=== PATIENT | female | born 1945 | race Two or more races ===

== ENCOUNTER 2017-09-12 05:54 | Emergency (ER) | payer MEDICARE ==
[~2017-09-12] VITALS: Ht 160 cm; Wt 77.1 kg
[2017-09-12] MEDS ORDERED: SODIUM CHLORIDE 0.9% 1000ML 1,000 ML ONE (06:30)
[2017-09-12] MEDS ORDERED: ACETAMINOPHEN 325 MG TAB PO ONE (06:30)
[2017-09-12 08:58] VITALS: BP 146/88
== END 2017-09-12 09:00 | disposition home or self-care (01) ==
LOC: FSED 05:54
DX: R30.0 Dysuria (principal); N39.0 Urinary tract infection, site not specified; K80.20 Calculus of gallbladder without cholecystitis without obstruction; I10 Essential (primary) hypertension; E11.9 Type 2 diabetes mellitus without complications
CPT/HCPCS: 74177; 80053; 81003; 85025; 87086; 99284; J7030

== ENCOUNTER 2017-09-21 07:21 | Emergency (ER) | payer MEDICARE ==
[~2017-09-21] VITALS: Ht 160 cm; Wt 77.1 kg
[2017-09-21] MEDS ORDERED: DICYCLOMINE HCL10 MG PO (07:43)
[2017-09-21] MEDS ORDERED: LINZESS PO (07:43)
[2017-09-21] MEDS ORDERED: LEVOCETIRIZINE D5 MG PEG (07:49)
[2017-09-21] MEDS ORDERED: NORVASC10 MG PO (07:49)
[2017-09-21] MEDS ORDERED: ASPIR 8181 MG PO (07:49)
[2017-09-21] MEDS ORDERED: ATORVASTATIN CA10 MG PO (07:49)
[2017-09-21] MEDS ORDERED: METOPROLOL TART25 MG PO (07:49)
[2017-09-21] MEDS ORDERED: METFORMIN HCL500 MG PO (07:49)
[2017-09-21] MEDS ORDERED: MELOXICAM7.5 MG PO (07:49)
== END 2017-09-21 12:36 | disposition home or self-care (01) ==
LOC: FSED 07:21
DX: E11.40 Type 2 diabetes mellitus with diabetic neuropathy, unspecified (principal); I10 Essential (primary) hypertension; K58.9 Irritable bowel syndrome, unspecified; Z86.12 Personal history of poliomyelitis
CPT/HCPCS: 70450; 80053; 85025; 85379; 93970; 99284

== ENCOUNTER 2017-10-06 04:07 | Emergency (ER) | payer MEDICARE ==
[~2017-10-06] VITALS: Ht 160 cm; Wt 77.1 kg
[~2017-10-06 04:07] MED LIST: ASPIR 8181 MG PO; ATORVASTATIN CA10 MG PO; DICYCLOMINE HCL10 MG PO; LEVOCETIRIZINE D5 MG PEG; LINZESS PO; MELOXICAM7.5 MG PO; METFORMIN HCL500 MG PO; METOPROLOL TART25 MG PO; NORVASC10 MG PO
[2017-10-06] MEDS ORDERED: MONTELUKAST SOD10 MG PO (04:23)
[2017-10-06] MEDS ORDERED: GLIMEPIRIDE2 MG PO (04:23)
[2017-10-06] MEDS ORDERED: BACLOFEN10 MG PO (04:25)
[2017-10-06] MEDS ORDERED: LYRICA75 MG (04:26)
[2017-10-06 05:02] LABS: BASOPHILS # (AUTO) 0.1 (0.0-0.1); BASOPHILS % 0.9 % (0.0-1.0); EOSINOPHILS # (AUTO) 0.2 (0.0-0.4); EOSINOPHILS % 2.2 % (0.0-6.0); HEMATOCRIT 40.5 % (34.2-44.1); HEMOGLOBIN 12.7 g/dL (12.0-16.0); LYMPHOCYTES # (AUTO) 1.9 (1.0-3.2); LYMPHOCYTES % 27.8 % (18.0-39.1); MEAN CORPUSCULAR HEMOGLOBIN 29.3 pg (28-32); MEAN CORPUSCULAR HGB CONC 31.4 g/dL (31-35); MEAN CORPUSCULAR VOLUME 93.5 fL (81-99); MONOCYTES # (AUTO) 0.5 (0.2-0.8); MONOCYTES % 7.5 % (4.4-11.3); NEUTROPHILS # (AUTO) 4.3 (2.1-6.9); NEUTROPHILS % 61.3 % (38.7-80.0); PLATELET COUNT 239 x10e3/uL (140-360); RED BLOOD COUNT 4.33 x10e6/uL (3.6-5.1); RED CELL DISTRIBUTION WIDTH 14.2 % (11.7-14.4)
[2017-10-06 05:16] LABS: BILIRUBIN,URINE NEGATIVE (NEGATIVE); CLARITY,URINE CLEAR (CLEAR); COLOR,URINE YELLOW (YELLOW); KETONES,URINE NEGATIVE (NEGATIVE); LEUKOCYTE ESTERASE ,URINE TRACE (NEGATIVE); NITRITE,URINE NEGATIVE (NEGATIVE); PROTEIN,URINE DIPSTICK NEGATIVE (NEGATIVE); URINE UROBILINOGEN 0.2 mg/dL (0.2 - 1)
[2017-10-06 05:17] LABS: EPITHELIAL CELLS,URINE MODERATE /LPF; RBC,URINE 0-5 /HPF (0-5)
[2017-10-06 05:18] LABS: ALBUMIN 4.1 g/dL (3.5-5.0); ALBUMIN/GLOBULIN RATIO 1.1 (0.8-2.0); ANION GAP 16.1 mmol/L (8-16); CREATININE, SERUM 1.07 mg/dL (0.57-1.11); POTASSIUM 4.1 mmol/L (3.5-5.1)
[2017-10-06 05:26] LABS: CREATINE KINASE MB 4.1 ng/mL (0-5.0)
--- NOTE | 2017-10-06 05:36 | Diagnostic Imaging Report ---
EXAMINATION: Head CT without contrast. HISTORY:Dizziness. COMPARISON:None. TECHNIQUE: Multidetector axial images were obtained from the foramen magnum to the vertex without contrast. The images were reconstructed using brain and bone algorithms. Thin section brain images were reformatted into coronal and sagittal planes. Intravenous contrast: None IMAGE QUALITY: Acceptable. FINDINGS: Skull/scalp: No lytic or blastic. lesions. No surgical changes. Parenchyma: Nonspecific few, scattered supratentorial white matter patchy hypodensity are likely microvascular ischemic changes. 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 No acute hemorrhage, mass or acute major vascular territorial infarct. Arteries: Atherosclerotic calcification in bilateral carotid siphon and V4 segment of the vertebral arteries. Dural sinuses: No abnormal density suggestive of thrombosis. Ventricles: No hydrocephalus or displacement. Extra-axial spaces: No abnormal density. Brain volume: Normal for age. Craniocervical junction: No mass, Chiari malformation, or basilar invagination. Sella: No mass. Paranasal/mastoid sinuses: Mild mucosal thickening in left sphenoid sinus. IMPRESSION: 1. No acute intracranial abnormality. 2. Mild supratentorial white matter microvascular ischemic changes. Signed by: Dr. Lauren Emery M.D. on 10/06/2017 5:33 AM
--- NOTE | 2017-10-06 05:53 | Diagnostic Imaging Report ---
EXAM: CHEST SINGLE (PORTABLE), AP 1 view INDICATION: Dizzy COMPARISON: None FINDINGS: LINES/TUBES: None LUNGS: No consolidations or edema. PLEURA: No effusions or pneumothorax. HEART AND MEDIASTINUM: The heart is within normal size limits. Enlargement of the upper mediastinum. BONES AND SOFT TISSUES: No acute findings. IMPRESSION: Nonspecific enlargement of the upper mediastinum. This could be secondary to mass, lymphadenopathy or vascular pathology. A CT of the chest with IV contrast is recommended for further evaluation. Signed by: Dr. Judith Main M.D. on 10/06/2017 5:50 AM
[2017-10-06] MEDS ORDERED: SODIUM CHLORIDE 0.9% 1000ML 1,000 ML IV ONE (06:00)
[2017-10-06] MEDS ORDERED: SODIUM CHLORIDE 0.9% 50ML 50 ML ONE (06:29)
[2017-10-06] MEDS ORDERED: IOPAMIDOL 370 MG/ML 200 ML INFUS..BTL INJ ONE (06:29)
[2017-10-06 09:15] VITALS: BP 110/78
--- NOTE | 2017-10-06 09:18 | Diagnostic Imaging Report ---
PROCEDURE: CT scan of the chest WITH intravenous contrast, using standard protocol. TECHNIQUE: The chest was scanned utilizing a multidetector helical scanner from the lung apex through the level of the adrenal glands after the IV administration of 100 cc of Isovue 370. Coronal and sagittal multiplanar reformations were obtained. COMPARISON: Chest radiograph 10/06/17. INDICATIONS: ABNORMAL CXR; ENLARGEMENT OF MEDIASTINUM FINDINGS: Lines/tubes: None. Lungs and Airways: The central airways are patent. Patchy dependent atelectasis. There are scattered tree in bud nodules in the right upper lobe, for example on series 3, image 27 and image 40. Some of clustered nodules are larger, for example measuring up to 4 mm in the right upper lobe on image 41. There is 4 mm high density nodule within the right upper lobe on image 40, likely calcified granuloma. Pleura: The pleural spaces are clear. Heart and mediastinum: No evidence of mediastinal mass. The ascending thoracic aorta is ectatic measuring up to 3.9 cm, likely accounting for the upper mediastinal fullness noted on chest radiograph. There are atherosclerotic calcifications of the thoracic aorta and coronary vessels. The thyroid gland is normal. No significant mediastinal, hilar or axillary lymphadenopathy is seen. Non-specific 9 mm left peribronchial lymph node. No pericardial effusion. Soft tissues: Normal. Abdomen: Limited contrast-enhanced views of the upper abdomen show no abnormality within the visualized liver, spleen, or pancreas. 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 Partially seen 2.7 cm left renal cyst. Cholelithiasis. Bones: No acute bony findings. No suspicious lytic or blastic lesions. IMPRESSION: No evidence of mediastinal mass. The ascending thoracic aorta is ectatic measuring up to 3.9 cm, likely accounting for the upper mediastinal fullness noted on prior chest radiograph. Scattered tree in bud and clustered nodules in the right upper lobe, likely infectious or inflammatory. The largest solid nodule measures up to 4 mm. No follow-up chest CT is advised for a low-risk patient. An optional chest CT may be considered in 12 months for higher risk patients (such as those with smoking history or other risk factor for malignancy). Dictated by: LISA DUMAS M.D. on 10/06/2017 at 7:36 Electronically approved by: LISA DUMAS M.D. on 10/06/2017 at 7:36
== END 2017-10-06 09:30 | disposition home or self-care (01) ==
LOC: ER 04:10
DX: R42 Dizziness and giddiness (principal); N30.90 Cystitis, unspecified without hematuria
CPT/HCPCS: 36415; 70450; 71045; 71260; 80053; 81001; 82550; 82553; 84484; 85025; 93005; 99284; J7030; Q9967

== ENCOUNTER 2017-12-15 03:27 | Emergency (ER) | payer MEDICARE ==
[~2017-12-15] VITALS: Ht 160 cm; Wt 72.6 kg
[~2017-12-15 03:27] MED LIST changes: +BACLOFEN10 MG PO; +GLIMEPIRIDE2 MG PO; +LYRICA75 MG; +MONTELUKAST SOD10 MG PO
--- NOTE | 2017-12-15 04:24 | Diagnostic Imaging Report ---
EXAMINATION: Head CT without contrast. HISTORY:Headache. COMPARISON:CT head from 10/06/2017. TECHNIQUE: Multidetector axial images were obtained from the foramen magnum to the vertex without contrast. The images were reconstructed using brain and bone algorithms. Thin section brain images were reformatted into coronal and sagittal planes. Dose modulation, iterative reconstruction, and/or weight based adjustment of the mA/kV was utilized to reduce the radiation dose to as low as reasonably achievable. Intravenous contrast: None IMAGE QUALITY: Acceptable. FINDINGS: Skull/scalp: No lytic or blastic. lesions. No surgical changes. Parenchyma: Nonspecific few, scattered supratentorial white matter patchy hypodensity are likely related to small vessel ischemic changes. 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 No acute hemorrhage, mass or acute major vascular territorial infarct. Arteries: No density suggestive of thrombosis. Atherosclerotic calcification in bilateral carotid siphon and V4 segment of the vertebral arteries. Dural sinuses: No abnormal density suggestive of thrombosis. Ventricles: No hydrocephalus or displacement. Extra-axial spaces: No abnormal density. Brain volume: Normal for age. Craniocervical junction: No mass, Chiari malformation, or basilar invagination. Sella: No mass. Paranasal/mastoid sinuses: Imaged portions unremarkable. IMPRESSION: No acute intracranial abnormality. No change since CT brain from 10/06/2017. Chronic findings: Mild supratentorial white matter microvascular ischemic changes. Signed by: Dr. Lauren Emery M.D. on 12/15/2017 4:21 AM
== END 2017-12-15 05:18 | disposition home or self-care (01) ==
LOC: FSED 03:27
DX: G44.209 Tension-type headache, unspecified, not intractable (principal); H10.89 Other conjunctivitis; I10 Essential (primary) hypertension; E11.9 Type 2 diabetes mellitus without complications; E03.9 Hypothyroidism, unspecified; Z86.12 Personal history of poliomyelitis
CPT/HCPCS: 70450; 80053; 81003; 82553; 84484; 85025; 93005; 99284

== ENCOUNTER 2018-11-12 03:44 | Emergency (ER) | payer MEDICARE ==
[~2018-11-12] VITALS: Ht 160 cm; Wt 72.6 kg
--- OUTSIDE RECORDS SUMMARY | 2018-11-12 03:47 | XMS REPORT ---
Author Author [facility] Address Unknown Phone Unavailable Care Team Providers Care Senior [employer] Sql Developer Name Role Phone Shreyas CRANE Unavailable Unavailable Orestes KINGSTON Unavailable Unavailable Payers Payer Name Policy Type Policy Number Effective Date Expiration Date Problems This patient has no known problems. Allergies, Adverse Reactions, Alerts Allergy Name Allergy Type Status Severity Reaction(s) Onset Date Inactive Date Treating Clinician Comments No Known Allergies DA Active U 2017-05-02 00:00:00 Medications This patient has no known medications. Results Test Description Test Time Test Comments Text Results Atomic Results Result Comments DUODENUM,BIOPSY 2018-05-09 16:02:00 RUN DATE: 05/09/18 [place] - Lab PAGE 1 RUN TIME: 1602 Specimen Inquiry RUN USER: INTERFACE [id number] LOC: МАРИНА U #: [id number] AGE/SX: 73/F ROOM: RE05/02/18REG DR: Betito Mireles : 49 BED: DIS: STATUS: [facility] TLOC: SPEC #: [id number] RECD: 05/02/18 STATUS: [facility] #: [id number] PIETRO: 05/02/18- [facility] DR: Betito Mireles MD ENTERED: 05/02/18 SP TYPE: BX DUODEN OTHR DR: Ed Yoder MD ORDERED: GROSS COPIES TO: Betito Mireles MD [address], [address] [place], [place] [id number] Ed Yoder MD [address] [place], [place] [address] PROCE DURES: GROSS (05/04/18-1247) TISSUES: 1. DUODENUM, NOS - COLD BX 2. ANTRUM - COLD BX 3. ESOPHAGUS, NOS - COLD BX CLINICAL HISTORY COLLECTION DATE: 05/02/18 DYSPHAGIA, ABDOMINAL PAIN FINAL DIAGNOSIS Duodenum, biopsy: DUODENAL MUCOSA, NO PATHOLOGIC ALTERATION Antrum, biopsy: REACTIVE GASTROPATHY WITH PATCHY MILD CHRONIC INFLAMMATION NO INTESTINAL METAPLASIA SEEN NEGATIVE FOR HELICOBACTER PYLORI NEGATIVE FOR MALIGNANCY Esophagus, biopsy: ACUTE AND CHRONIC INFLAMMATION WITH REACTIVE EPITHELIAL CHANGES CONSISTENT WITH REFLUX, SQUAMOUS ESOPHAGEAL MUCOSA NEGATIVE FOR SIGRID BY GMS STAIN NEGATIVE FOR INTESTINAL METAPLASIA AND MALIGNANCY CONTINUED ON NEXT PAGE RUN DATE: 05/09/18 [facility] PAGE 2 RUN TIME: 1602 Specimen Inquiry RUN USER: INTERFACE SPEC #: [id number] PATIENT: MELE STOCKTON CRYSTAL #[id number] (Continued) FINAL DIAGNOSIS (Continued) [facility]/ D [phone] MACROSCOPIC The first specimen is received in formalin, labeled with the patient's name, and identified as "duodenum bx". It consists of two calles biopsy fragments measuring 0.3 cm each. The second specimen is received in formalin, labeled with the patient's name, and identified as "antrum bx". It consists of two calles biopsy fragments measuring 0.2 and 0.4 cm. An H E and a Giemsa stain will be prepared. The third specimen is received in formalin, labeled with the patient's name, and identified as "esophagus bx". It consists of calles biopsy material measuring 0.3 cm in aggregate. GROSS PERFORMED AT [facility] [address] [place] [id number] [phone] MICROSCOPIC MICROSCOPIC PERFORMED AT [facility] All of the stains, including any controls performed, stain appropriately. [facility] [address] [facility], [place] [address] [phone])[phone] PERFORMING SITE Diagnosis performed at: [facility], [place] [address] [place] [address] CONTINUED ON NEXT PAGE RUN DATE: 05/09/18 [facility] Lab PAGE 3 RUN TIME: 1602 Specimen Inquiry RUN USER: INTERFACE SPEC #: [id number] PATIENT: MELE STOCKTON CRYSTAL #[id number] (Continued) Signed SIGNATURE ON FILE Ruma Roy MD 05/09/18 1602 END OF REPORT GLUBED 2018-05-02 06:53:00 GLUBED (test code=GLUBED) 81 mg/dL 74-106 Performed by certified teletray operator at [facility] CT BRAIN [id number] 04:17:00 [place] [address] Patient Name: MELE STOCKTON MR #: [id number] : 1945 Age/Sex: 72/F Req #: [id number] Adm Physician: Ordered by: JG CRANE MD Report #: [id number] Location: [facility] Room/Bed: Procedure: [id number] HOPD/CT BRAIN WO-HOPD Exam Date: 12/15/17 Exam Time: 0408 REPORT STATUS: S igned EXAMINATION: Head CT without contrast. HISTORY:Headache. COMPARISON:CT head from 10/06/2017. TECHNIQUE: Multidetector axial images w ere obtained from the foramen magnum to the vertex without contrast. The image s were reconstructed using brain and bone algorithms. Thin section brain imag es were reformatted into coronal and sagittal planes. Dose modulation, itera tive reconstruction, and/or weight based adjustment of the mA/kV was utilized to reduce the radiation dose to as low as reasonably achievable. Intraven ous contrast: None IMAGE QUALITY: Acceptable. FINDINGS: Skull/ scalp: No lytic or blastic. lesions. No surgical changes. Parenchyma: Non specific few, scattered supratentorial white matter patchy hypodensity are lik parker related to small vessel ischemic changes. Old lacunar infarct in right fro ntal centrum semiovale. No acute hemorrhage, mass or acute major vascular terr itorial infarct. Arteries: No density suggestive of thrombosis. Atheroscl erotic calcification in bilateral carotid siphon and V4 segment of the vertebr al arteries. Dural sinuses: No abnormal density suggestive of thrombosi s. Ventricles: No hydrocephalus or displacement. Extra-axial spaces : No abnormal density. Brain volume: Normal for age. Craniocervica l junction: No mass, Chiari malformation, or basilar invagination. Sella : No mass. Paranasal/mastoid sinuses: Imaged portions unremarkable. IMPRESSION: No acute intracranial abnormality. No change since CT brain f rom 10/06/2017. Chronic findings: Mild supratentorial white matter microva scular ischemic changes. Signed by: Dr. Lauren Emery M.D. on 12/15/2017 4:21 AM Dictated By: LAUREN EMERY MD 0 Transcribed By: VELMA on 12/15/17420 CO PY TO: JG CRANE MD CT CHEST [id number] 07:36:00 [place] [address] Patient Name: MELE STOCKTON MR #: [id number] : 1945 Age/Sex: 72/F Req #: [id number] Adm Physician: Ordered by: MARIAJOSE KINGSTON MD Report #: [id number] Location: [facility]/Bed: Procedure: [id number] CT/CT CHEST W Exam Paolo e: 10/06/17 Exam Time: 639 REPORT STATUS: Sign ed PROCEDURE: CT scan of the chest WITH intravenous contrast, using standa rd protocol. TECHNIQUE: The chest was scanned utilizing a multidetect or helical scanner from the lung apex through the level of the adrenal glands after the IV administration of 100 cc of Isovue 370. Coronal and sagittal multiplanar reformations were obtained. COMPARISON: Chest radiograph 09/11 09/27. INDICATIONS: ABNORMAL CXR; ENLARGEMENT OF MEDIASTINUM FIND INGS: Lines/tubes: None. Lungs and Airways: The central airways are pat ent. Patchy dependent atelectasis. There are scattered tree in bud nodules in the right upper lobe, for example on series 3, image 27 and image 40. Some of clustered nodules are larger, for example measuring up to 4 mm in the right upper lobe on image 41. There is 4 mm high density nodule within the right upper lobe on image 40, likely calcified granuloma. Pleura: The pleural spaces are clear. Heart and mediastinum: No evidence of mediastinal mass. The ascending thoracic aorta is ectatic measuring up to 3.9 cm, likely accoun ting for the upper mediastinal fullness noted on chest radiograph. There are atherosclerotic calcifications of the thoracic aorta and coronary vessels. The thyroid gland is normal. No significant mediastinal, hilar or axillary l ymphadenopathy is seen. Non-specific 9 mm left peribronchial lymph node. No p ericardial effusion. Soft tissues: Normal. Abdomen: Limited contras t-enhanced views of the upper abdomen show no abnormality within the visualiz ed liver, spleen, or pancreas. There is a 1.6 cm fatty lesion of the right ad renal gland, consistent with myolipoma. Partially seen 2.7 cm left renal cyst . Cholelithiasis. Bones: No acute bony findings. No suspicious lytic or b lastic lesions. IMPRESSION: No evidence of mediastinal mass. The ascending thoracic aorta is ectatic measuring up to 3.9 cm, likely accoun ting for the upper mediastinal fullness noted on prior chest radiograph. Scattered tree in bud and clustered nodules in the right upper lobe, likely infectious or inflammatory. The largest solid nodule measures up to 4 mm. No follow-up chest CT is advised for a low-risk patient. An optional chest CT may be considered in 12 months for higher risk patients (such as those with s moking history or other risk factor for malignancy). Dictated b y: LISA DUMAS M.D. on 10/06/2017 at 7:36 Electronically approved by: RAJENDRA DUMAS M.D. on 10/06/2017 at 7:36 Dictated By: LISA DUMAS MD E lectronically Signed By: LISA DUMAS MD on 10/06/17735 Transcribed By: GLEN gonzalez 10/06/17735 COPY TO: MARIAJOSE KINGSTON MD CHEST SINGLE (PORTABLE)2017-10-06 05:48:00 [place] [address] Patient Name: MELE STOCKTON MR #: [id number] : 1945 Age/Sex: 72/F Req #: [id number] Adm Physician: Ordered by: MARIAJOSE KINGSTON MD Report #: [id number] Location: ER Room/Bed: Procedure: [id number] DX/CHEST SINGLE (PORTAB LE) Exam Date: 10/06/17 Exam Time: 0500 REPORT STATUS: Signed EXAM: CHEST SINGLE (PORTABLE), AP 1 view INDICATION: Dizzy COMPARISON: None FINDINGS: LINES/TUBES: None LUNGS: No consolidati ons or edema. PLEURA: No effusions or pneumothorax. HEART AND MEDIAST INUM: The heart is within normal size limits. Enlargement of the upper mediast inum. BONES AND SOFT TISSUES: No acute findings. IMPRESSION: Nonspe cific enlargement of the upper mediastinum. This could be secondary to mass, l ymphadenopathy or vascular pathology. A CT of the chest with IV contrast is re commended for further evaluation. Signed by: Alexis Grajeda on 10/06/2017 5:50 AM Dictated By: MICK MENDOZA MD Electronically Si gned By: MICK MENDOZA MD on 10/06/1750 Transcribed By: VELMA on 10/06/17549 COPY TO: MARIAJOSE KINGSTON MD CT BRAIN [id number] 05:28:00 [place] [address] Patient Name: MELE STOCKTON MR #: [id number] : 1945 Age/Sex: 72/F Req #: [id number] Adm Physician: Ordered by: MARIAJOSE KINGSTON MD Report #: [id number] Location: ER Room/Bed: Procedure: [id number] CT/CT BRAIN WO Exam Da te: 10/06/17 Exam Time: 0450 REPORT STATUS: Sig sandy ADDENDUM #1 Dose modulation, iterative reconstr uction, and/or weight based adjustment of the mA/kV was utilized to reduce the radiation dose to as low as reasonably achievable. Signed by: Dr. Kenn Emery M.D. on 11/02/2017 1:58 AM ORIGINAL REPORT EX AMINATION: Head CT without contrast. HISTORY:Dizziness. COMPARISON:None . TECHNIQUE: Multidetector axial images were obtained from the foramen magnum to the vertex without contrast. The images were reconstructed using brain and bone algorithms. Thin section brain images were reformatted into coronal and sagittal planes. Intravenous contrast: None IMAGE QUALITY: Acceptab le. FINDINGS: Skull/scalp: No lytic or blastic. lesions. No surgical changes. Parenchyma: Nonspecific few, scattered supratentorial white william er patchy hypodensity are likely microvascular ischemic changes. 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 No acute hemorrhage, mass or acute major vascular territorial infarct. Arteries: Atherosclerotic calcificat ion in bilateral carotid siphon and V4 segment of the vertebral arteries. Dural sinuses: No abnormal density suggestive of thrombosis. Ventricles: No hydrocephalus or displacement. Extra-axial spaces: No abnormal density. Brain volume: Normal for age. Craniocervical junction: No mass, Chiari malformation, or basilar invagination. Sella: No mass. Pa ranasal/mastoid sinuses: Mild mucosal thickening in left sphenoid sinus. IM PRESSION: 1. No acute intracranial abnormality. 2. Mild supratentorial white matter microvascular ischemic changes. Signed by: Dr. Lauren lopez M.D. on 10/06/2017 5:33 AM Dictated By: LAUREN EMERY MD [facility] Signed By: LAUREN EMERY MD on 11/02/17 0158 Transcribed By: VELMA on 0 10/06/17 0543 COPY TO: MARIAJOSE KINGSTON MD
[2018-11-12] MEDS ORDERED: ACETAMINOPHEN/CODEINE 300MG - 30MG TAB PO ONE (04:15)
[2018-11-12] MEDS ORDERED: TRAMADOL HCL 50 MG TAB PO ONE (04:15)
[2018-11-12] MEDS ORDERED: TRAMADOL HCL 50 MG TAB ONE (04:17)
--- NOTE | 2018-11-12 05:45 | Diagnostic Imaging Report ---
EXAMINATION: Head CT without contrast. HISTORY:Headache. COMPARISON:CT head from 12/15/2017. TECHNIQUE: Multidetector axial images were obtained from the foramen magnum to the vertex without contrast. The images were reconstructed using brain and bone algorithms. Thin section brain images were reformatted into coronal and sagittal planes. Dose modulation, iterative reconstruction, and/or weight based adjustment of the mA/kV was utilized to reduce the radiation dose to as low as reasonably achievable. Intravenous contrast: None IMAGE QUALITY: Acceptable. FINDINGS: Skull/scalp: No lytic or blastic. lesions. No surgical changes. Parenchyma: Unchanged nonspecific few, scattered supratentorial white matter hypodensity are likely related to small vessel ischemic changes. 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 No acute hemorrhage, mass or acute major vascular territorial infarct. Arteries: No density suggestive of thrombosis. Atherosclerotic calcification in bilateral carotid siphon and V4 segment of the vertebral arteries. Dural sinuses: No abnormal density suggestive of thrombosis. Ventricles: No hydrocephalus or displacement. Extra-axial spaces: No abnormal density. Brain volume: Normal for age. Craniocervical junction: No mass, Chiari malformation, or basilar invagination. Sella: No mass. Paranasal/mastoid sinuses: Imaged portions unremarkable. IMPRESSION: No acute intracranial abnormality. No change since CT brain from 12/15/2017. Chronic findings: Mild supratentorial white matter microvascular ischemic changes. Signed by: Dr. Lauren Emery M.D. on 11/12/2018 5:42 AM
--- NOTE | 2018-11-12 05:53 | Diagnostic Imaging Report ---
History: Headache, neck pain. Comparison studies: None Technique: Axial images were obtained through the cervical region.. Coronal and sagittal images reconstructed from the axial data. Dose modulation, iterative reconstruction, and/or weight based adjustment of the mA/kV was utilized to reduce the radiation dose to as low as reasonably achievable. Intravenous contrast: None Findings: Fractures: None. Soft tissue injuries: None. Atlantoaxial articulation: Intact. Alignment: Normal lordosis. No scoliosis. Cervicomedullary junction: No abnormalities. The foramen magnum is patent. Soft tissues: Atherosclerotic calcification in bilateral carotid bulb. Subcentimeter calcified nodule in right lobe of thyroid gland. Vertebrae: No fractures, infection or neoplasm. Degenerative changes: C4-C5: Posterior disc osteophyte complex results in mild canal stenosis. C5-C6: Posterior disc osteophyte complex results in mild canal stenosis. Mild degenerative disc disease. C6-C7: Posterior disc osteophyte complex results in mild canal stenosis. Mild right foraminal stenosis due to facet and uncovertebral arthrosis. Moderate degenerative disc disease. . Incidental findin cm spiculated nodule in right lung apex. IMPRESSION: 1. No acute cervical spine fracture or dislocation. 2. Ligament, spinal cord and or vascular abnormalities cannot be excluded on the basis of this examination. 3. Cervical spondylosis as detailed above. 4. Incidental 1 cm nodule in right lung apex, consider follow-up with dedicated chest CT for further assessment. Signed by: Dr. Lauren Emery M.D. on 11/12/2018 5:49 AM
[2018-11-12 06:18] VITALS: BP 130/77
== END 2018-11-12 06:25 | disposition home or self-care (01) ==
LOC: FSED 03:44
DX: R51 Headache (principal); M54.2 Cervicalgia; M50.30 Other cervical disc degeneration, unspecified cervical region; M48.02 Spinal stenosis, cervical region; I10 Essential (primary) hypertension; E11.9 Type 2 diabetes mellitus without complications; Z86.12 Personal history of poliomyelitis
CPT/HCPCS: 70450; 72125; 99283

== ENCOUNTER → 2020-09-03 | Outpatient (CLI) | payer MEDICARE | LOC: MAMMO 08:47 | PROVIDERS: ATTEND Internal Medicine | DX: Z12.31 Encounter for screening mammogram for malignant neoplasm of breast (principal); J41.0 Simple chronic bronchitis | CPT/HCPCS: 71046; 77067 ==

== ENCOUNTER → 2022-04-21 | Outpatient (CLI) | payer MEDICARE | LOC: RAD 13:54 | PROVIDERS: ATTEND Internal Medicine | DX: M54.2 Cervicalgia (principal); M54.50 Low back pain, unspecified | CPT/HCPCS: 72050; 72110 ==

== ENCOUNTER → 2022-05-05 | Outpatient (CLI) | payer MEDICARE | LOC: DX 11:08 | PROVIDERS: ATTEND Internal Medicine | DX: M85.88 Other specified disorders of bone density and structure, other site (principal) | CPT/HCPCS: 77080 ==

== ENCOUNTER → 2024-05-08 | Outpatient (REF) | payer MEDICARE | LOC: RAD 15:54 | PROVIDERS: ATTEND Internal Medicine | DX: R06.02 Shortness of breath (principal) | CPT/HCPCS: 71046 ==

== ENCOUNTER → 2024-05-09 | Outpatient (REF) | payer MEDICARE | LOC: MAMMO 15:01 | PROVIDERS: ATTEND Internal Medicine | DX: Z12.31 Encounter for screening mammogram for malignant neoplasm of breast (principal) | CPT/HCPCS: 77067 ==

== ENCOUNTER → 2024-12-30 | Outpatient (REF) | payer MEDICARE ==
[~2024-12-30] MED LIST changes: +IOPAMIDOL 370 MG/ML 100 ML INFUS..BTL INJ ONE
[2024-12-30 09:05] LABS: EST GLOMERULAR FILTRATION RATE 73.0 ML/MIN (>=60)
== END ==
LOC: CT 07:25
PROVIDERS: ATTEND Internal Medicine Gastroenterology
DX: E11.9 Type 2 diabetes mellitus without complications (principal); K21.9 Gastro-esophageal reflux disease without esophagitis; K44.9 Diaphragmatic hernia without obstruction or gangrene; K58.9 Irritable bowel syndrome, unspecified; K57.30 Diverticulosis of large intestine without perforation or abscess without bleeding; R10.30 Lower abdominal pain, unspecified; Z78.9 Other specified health status; Z68.32 Body mass index [BMI] 32.0-32.9, adult; Z71.3 Dietary counseling and surveillance; Z86.0101 Personal history of adenomatous and serrated colon polyps
CPT/HCPCS: 36415; 74177; 82565; 84520; Q9967